=== PATIENT | male | born 1995 | race African-American/Black ===

== ENCOUNTER 2017-04-15 21:51 | Emergency (ER) | payer BC ==
[~2017-04-15] VITALS: Ht 195.6 cm; Wt 105.2 kg
--- NOTE | 2017-04-15 22:07 | ED.ADGEN ---
Past History Past Medical History: Other Adult General Chief Complaint Chief Complaint " I got this hemorrhoid... and I ve been putting cream on it for past day or so and it is not better..." HPI HPI Patient is a 21 year old male who presents with above hx and complaints of a thrombosed hemorrhoid. Patient has approximately 1 cm hemorrhoid that is inflamed. Take since had previous problems with hemorrhoids. No previous surgeries. No rectal sex. Does have history of heart stools. No recent travel or immunosuppression. Discussed options of treatment. Patient elects to treat it conservatively with sitz bath, pain meds and hydrocortisone cream. Patient given a scheduled follow-up up with surgical clinic [facility]. Review of Systems Review of Systems Constitutional: Denies fever or chills [] Eyes: Denies change in visual acuity, redness, or eye pain [] HENT: Denies nasal congestion or sore throat [] Respiratory: Denies cough or shortness of breath [] Cardiovascular: No additional information not addressed in HPI [] GI: Denies abdominal pain, nausea, vomiting, bloody stools or diarrhea [] : Denies dysuria or hematuria [] Musculoskeletal: Denies back pain or joint pain [] Integument: Denies rash or skin lesions [] Neurologic: Denies headache, focal weakness or sensory changes [] Endocrine: Denies polyuria or polydipsia [] Family History Family History Noncontributory Current Medications Current Medications Current Medications Medications (Trade) Dose Ordered Sig/Giancarlo Start Time Stop Time Status Last Admin Dose Admin Ketorolac Tromethamine (Toradol) 60 mg 1X ONCE 04/15/17 23:30 04/15/17 23:31 DC 04/15/17 23:26 60 MG Allergies Allergies Allergies Coded Allergies Type Severity Reaction Last Updated Verified No Known Drug Allergies 04/15/17 No Physical Exam Physical Exam Constitutional: Well developed, well nourished, no acute distress, non-toxic appearance. [] HENT: Normocephalic, atraumatic, bilateral external ears normal, oropharynx moist, no oral exudates, nose normal. [] Eyes: PERRLA, EOMI, conjunctiva normal, no discharge. [] Neck: Normal range of motion, no tenderness, supple, no stridor. [] Cardiovascular:Heart rate regular rhythm, no murmur [] Lungs & Thorax: Bilateral breath sounds clear to auscultation [] Abdomen: Bowel sounds normal, soft, no tenderness, no masses, no pulsatile masses. [] Hemorrhoid as per history of present illness Skin: Warm, dry, no erythema, no rash. [] Back: No tenderness, no CVA tenderness. [] Extremities: No tenderness, no cyanosis, no clubbing, ROM intact, no edema. [] Neurologic: Alert and oriented X 3, normal motor function, normal sensory function, no focal deficits noted. [] Psychologic: Affect normal, judgement normal, mood normal. [] Current Patient Data Vital Signs Vital Signs Date Time Temp Pulse Resp B/P (MAP) Pulse Ox O2 Delivery O2 Flow Rate FiO2 04/15/17 23:40 64 18 114/76 (89) 98 Room Air 04/15/17 22:09 97.7 EKG EKG [] Radiology/Procedures Radiology/Procedures [] Course & Med Decision Making Course & Med Decision Making Pertinent Labs and Imaging studies reviewed. (See chart for details). Patient use Anusol and/or hydrocortisone cream up 4 times a day. Patient keep stool soft. Patient do sitz baths. May take Vicoprofen up 4 times a day. Flagyl 500 mg 3 times a day. Call for surgery follow-up. [] Final Impression Final Impression 1. Hemorrhoid[] Problems: Dragon Disclaimer Dragon Disclaimer This electronic medical record was generated, in whole or in part, using a voice recognition dictation system. LYNN LINARES MD Apr 15, 2017 22:07
[2017-04-15] MEDS ORDERED: HYDR25SU18 RC (23:22)
[2017-04-15] MEDS ORDERED: MAGN2400 PO (23:22)
[2017-04-15] MEDS ORDERED: HYDR-79 PO (23:22)
[2017-04-15] MEDS ORDERED: HYDR28OI2 TP (23:22)
[2017-04-15] MEDS ORDERED: METR500T PO (23:22)
[2017-04-15] MEDS ORDERED: KETOROLAC 60 MG/2 ML VIAL. IM ONE (23:30)
[2017-04-15 23:40] VITALS: BP 114/76
== END 2017-04-15 23:42 | disposition home or self-care (01) ==
LOC: ER 21:51
DX: K64.5 Perianal venous thrombosis (principal)
CPT/HCPCS: 96372; 99283; J1885